=== PATIENT | female | born 1995 | race Caucasian/White ===

== ENCOUNTER 2025-05-25 13:20 | Inpatient (IN) | payer BC ==
[2025-05-31 06:26] VITALS: BMI 27.3
[2025-05-31] MEDS ORDERED: hydrALAZINE 20 MG/ML VIAL SLOW IVP PRN (06:33)
[2025-05-31] MEDS ORDERED: Carboprost 250 MCG/ML AMP IM PRN (06:33)
[2025-05-31] MEDS ORDERED: Methylergonovine 0.2 MG/ML VIAL IM PRN (06:33)
[2025-05-31] MEDS ORDERED: Lidocaine 1% (PF) 30 ML VIAL SC PRN (06:33)
[2025-05-31] MEDS ORDERED: Oxytocin 30 units/NS 500 ML 500 ML IV SCH (06:33)
[2025-05-31] MEDS ORDERED: Diphenoxylate HCl/Atropine Tablet PO PRN (06:33)
[2025-05-31 07:02] LABS: Hematocrit 35.3 % (34.9-44.5); Hemoglobin 12.1 g/dL (12.0-15.5); Mean Corpuscular Hemoglobin 30.1 pg (27.0-33.0); Mean Corpuscular Volume 87.8 fL (81.6-98.3); Platelet Count 167 10x3/uL (150-450); Red Blood Cell (RBC) Count 4.02 10x6/uL (3.90-5.03); White Blood Cell (WBC) Count 13.05 10x3/uL (3.5-10.5)
[2025-05-31 07:27] LABS: Hep B Surf Ag - L&D Non-Reactive S/CO (NonReactive)
[2025-05-31 07:29] LABS: Syphilis Antibody Index 0.02 S/CO (<1.00 Non-Reactive)
[2025-05-31] MEDS: Oxytocin 30 units/NS 500 ML 500 ML IV SCH (08:07)
[2025-05-31] MEDS: Acetaminophen 500 MG TAB PO PRN (10:56)
[2025-05-31] MEDS: fentaNYL/Ropivacaine Epidural 100 ML ONE (16:12)
[2025-05-31] MEDS ORDERED: diphenhydrAMINE 50 MG/ML VIAL IVP PRN (16:42)
[2025-05-31] MEDS ORDERED: Ondansetron PF 4 MG/2 ML Vial IVP PRN (16:42)
[2025-05-31] MEDS ORDERED: Acetaminophen 325 MG TAB PO PRN (16:42)
[2025-05-31] MEDS ORDERED: Communication Order-Pharmacy FS SCH (16:45)
[2025-05-31] MEDS ORDERED: fentaNYL 2 mcg/Ropivacaine 0.2% Epidural 100 ML CADD EPIDURAL SCH (16:45)
[2025-06-01] MEDS ORDERED: Lanolin Ointment 7 GM TUBE TOP PRN (02:51)
[2025-06-01] MEDS ORDERED: Milk Of Magnesia 30 ML UDCUP PO PRN (02:51)
[2025-06-01] MEDS ORDERED: Ondansetron PF 4 MG/2 ML Vial IVP PRN (02:51)
[2025-06-01] MEDS ORDERED: diphenhydrAMINE 25 MG CAP PO PRN (02:51)
[2025-06-01] MEDS: Ondansetron PF 4 MG/2 ML Vial IVP PRN (02:51)
[2025-06-01] MEDS ORDERED: HYDROcodone/Acetaminophen 5/325 mg Tablet PO PRN ×2 (02:51)
[2025-06-01] MEDS ORDERED: Bisacodyl 10 MG SUPP PR PRN (02:51)
[2025-06-01] MEDS ORDERED: Preparation H Ointment 28 GM TUBE PR PRN (02:51)
[2025-06-01] MEDS ORDERED: hydrALAZINE 20 MG/ML VIAL SLOW IVP PRN (02:51)
[2025-06-01] MEDS: Ibuprofen 800 MG TAB PO SCH (05:26)
[2025-06-01] MEDS: Boostrix 0.5 ML (Tdap) VIAL (>/=7 yrs of age) IM ONE (06:13)
[2025-06-01] MEDS: Tranexamic Acid 1,000 MG/10 ML VIAL ONE (06:13)
[2025-06-01 06:52] LABS: Hematocrit 31.7 % (34.9-44.5); Hemoglobin 10.6 g/dL (12.0-15.5)
[2025-06-01] MEDS: Ferrous Sulfate 325 MG TAB PO SCH (07:40)
[2025-06-01] MEDS: Acetaminophen 325 MG TAB PO PRN (09:51)
[2025-06-01] MEDS: Benzocaine-Menthol 82.5 ML CAN TOP PRN (12:51)
[2025-06-01] MEDS: Witch Hazel 100 PAD JAR TOP PRN (12:51)
[2025-06-03 07:56] VITALS: BP 112/68; TEMP 98.4
== END 2025-06-03 12:45 | disposition home or self-care (01) | DRG 807 ==
LOC: CSHLD 05-31 05:39 → CSHPP 06-01 02:30
PROVIDERS: ADMIT Student in an Organized Health Care Education/Training Program; ATTEND Student in an Organized Health Care Education/Training Program
PROC: 10E0XZZ Delivery of Products of Conception, External Approach (ICD-10-PCS; principal; 2025-06-01)
PROC: 0KQM0ZZ Repair Perineum Muscle, Open Approach (ICD-10-PCS; 2025-06-01)
DX: O48.0 Post-term pregnancy (principal); Z37.0 Single live birth; Z3A.40 40 weeks gestation of pregnancy; O99.344 Other mental disorders complicating childbirth; F41.9 Anxiety disorder, unspecified; O70.1 Second degree perineal laceration during delivery; Z79.899 Other long term (current) drug therapy
CPT/HCPCS: 36415; 51702; 85014; 85018; 85027; 86780; 86850; 86900; 86901; 87340; J2405; J2590